=== PATIENT | male | born 1990 | race Caucasian/White ===

== ENCOUNTER 2017-12-01 10:08 | Observation (INO) | payer OTHER ==
[2017-12-01] MEDS ORDERED: CEFAZOLIN/Water 2 GM/20 ML SYRINGE ONE (10:52)
[2017-12-01] MEDS ORDERED: Fentanyl 100 MCG/2 ML VIAL ONE ×3 (10:59→14:23)
[2017-12-01] MEDS ORDERED: Midazolam HCl 2 mg/2 ml Vial ONE (10:59)
[2017-12-01] MEDS ORDERED: Bupivacaine HCl 0.5%/Epinephrine 1:200,000/PF 30 ml Vial ONE ×2 (12:10→13:39)
[2017-12-01] MEDS ORDERED: Gelfilm 1 EA Packet ONE (12:10)
[2017-12-01] MEDS ORDERED: Bupivacaine HCl 0.25%/Epi 0.0005/PF 10 ML VIAL FS ONE (12:10)
[2017-12-01] MEDS ORDERED: Methocarbamol 500 MG TAB PO PRN (12:24)
[2017-12-01] MEDS ORDERED: Morphine 4 MG/ML Carpuject SLOW IVP PRN (12:24)
[2017-12-01] MEDS ORDERED: Milk Of Magnesia 30 ML UDCUP PO PRN (12:24)
[2017-12-01] MEDS ORDERED: HYDROcodone/Acetaminophen 7.5/325 mg Tablet PO PRN (12:24)
[2017-12-01] MEDS ORDERED: diphenhydrAMINE 50 MG CAP PO PRN (12:24)
[2017-12-01] MEDS ORDERED: Bisacodyl 10 MG SUPP PR PRN (12:24)
[2017-12-01] MEDS ORDERED: traMADol HCl 50 MG TAB PO PRN (12:24)
[2017-12-01] MEDS ORDERED: Acetaminophen 500 MG TAB PO PRN (12:24)
[2017-12-01] MEDS ORDERED: Ondansetron HCl/PF 4 MG/2 ML Vial IVP PRN (12:24)
[2017-12-01] MEDS ORDERED: PROPOFOL 200 MG/20 ML VIAL ONE (15:07)
[2017-12-01] MEDS ORDERED: Ondansetron HCl/PF 4 MG/2 ML Vial ONE (15:07)
[2017-12-01] MEDS ORDERED: Lidocaine 1% PF 5 ML VIAL ONE (15:07)
[2017-12-01] MEDS ORDERED: Ketorolac Tromethamine 30 MG/ML VIAL ONE (15:07)
[2017-12-01 16:24] VITALS: BMI 32.8
[2017-12-01] MEDS: HYDROcodone/Acetaminophen 7.5/325 mg Tablet PO PRN (16:50)
[2017-12-01] MEDS: Ketorolac Tromethamine 30 MG/ML VIAL IVP SCH (17:49)
[2017-12-01] MEDS: Dextrose 5 %-0.45 % NaCl 1,000 ML IV SCH ×2 (18:42→22:32)
[2017-12-01] MEDS: Famotidine 20 MG TAB PO SCH (21:41)
[2017-12-01] MEDS: CEFAZOLIN/Water 2 GM/20 ML SYRINGE SLOW IVP SCH (21:41)
[2017-12-02] MEDS: HYDROcodone/Acetaminophen 7.5/325 mg Tablet PO PRN (00:43)
[2017-12-02] MEDS: Ketorolac Tromethamine 30 MG/ML VIAL IVP SCH ×2 (00:44→05:21)
[2017-12-02] MEDS: CEFAZOLIN/Water 2 GM/20 ML SYRINGE SLOW IVP SCH (05:21)
--- NOTE | 2017-12-02 07:27 | OP ---
DATE OF PROCEDURE: 12/01/2017 PREOPERATIVE DIAGNOSES: Left knee anterior cruciate ligament tear and lateral meniscal tear. POSTOPERATIVE DIAGNOSES: Left knee anterior cruciate ligament tear and lateral meniscal tear. PROCEDURE PERFORMED: 1. Left knee exam under anesthesia. 2. Left knee arthroscopy with arthroscopically assisted ACL reconstruction using autologous patellar tendon graft. 3. Partial lateral meniscectomy. SURGEON: Jeet Vila M.D. FILES SUPERVISOR: Jagdeep Merrill PA-C. BLOOD LOSS: Minimal. COMPLICATIONS: None. He did go to the recovery room in stable condition. ANESTHESIA: He did have a general anesthetic. He also had a preoperative block. IMPLANTS: Our implants to the left knee and the femur, we used a 7 x 25 metal interference screw, on the tibia, we used a bicortical screw with a smooth washer as a post. Both of these were [employer] de vices. INDICATIONS: Rahat is an active 27-year-old male who injured his left knee and at this time is prepa red for ACL reconstruction. DESCRIPTION OF PROCEDURE: After all appropriate consent forms were explained and signed, he was take n to the operating room and at this time was given general anesthetic. Once anesthesia was appropria te, exam under anesthesia was performed of the left lower extremity, confirming a positive Daniel an d positive pivot shift. The patient was found to be stable to varus and valgus stress and a negative posterior drawer. Tourniquet was applied to the left thigh and leg was placed in an arthroscopic le g padilla. The limb was then prepped and draped in standard surgical fashion. Limb was exsanguinated , tourniquet was taken up to 300 mmHg. Knife blade was used to make an incision down through skin anteriorly and the Bovie was then used to coagulate any brisk venous bleeding. New blade was used to take the paratenon off the underlying pat ellar tendon. At this time a central third patellar tendon graft was harvested in standard fashion u sing a double 10 blade, saw and osteotome. This was taken to the back table and made through the gra ft was size 10 on either side. We then loosely closed our graft site with multiple interrupted Vicry l sutures. Inferolateral portal was then established and the scope was placed into the knee joint. A needle localization technique was then used to make a medial working portal. Diagnostic arthroscop y commenced in the notch. ACL was basically not there at this time, there was a small remnant onto t he femoral insertion, but otherwise most of the ACL itself had a basically disintegrated at this time . PCL was intact. We turned our attention to the medial compartment. Femur, tibia, and medial meni scus were all probed and found to be intact. The lateral compartment was evaluated. Femur and tibia were in good condition. There was a significant tear on the posterior horn of the lateral meniscus which basically was a radial tear going back starting from the white-white zone going back towards th e red-white zone and then horizontally intact so that this chunk of meniscus was only attached at its insertion onto the root and was flipped up 90 degrees and sitting behind the medial femoral condyle. This obviously was not repairable and this portion was taken down leaving any remaining meniscus al one. Again, this left, probably about 30-40% of the meniscus intact posteriorly from the root to the popliteal hiatus. From this area forward the meniscus was normal. The gutters were swept through, no loose bodies noted and the patellofemoral joint was also found to be in good condition. At this t robert, notchplasty was performed using the shaver and the bur in standard fashion. At this time, the k nee was flexed up and through the medial portal an [id number] guide was used to place a pin up and out the anterolateral thigh. A 10 mm acorn reamer was used to ream our tunnel to a depth of 30. At this time, all loose bony and cartilaginous debris was removed from the knee joint. We then placed o ur guide into our knee at 52-1/2 degrees and used this to place a pin up into the knee joint. Again, a 10 mm reamer was used to ream our tibial tunnel. Again, all loose bony and cartilaginous debris w as removed from the knee joint. A rasp and lawrence were then used to smooth off the edges of our tunnel and at this time we went dry. The knee was then flexed again and the pin was placed up and out the anterolateral thigh using this to pull our passing suture into the knee joint. The graft was pulled up into the knee joint. The femur was then fixated with a 7 x 25 metal interference screw. The tibi a we drilled bicortically, tapped and placed a bicortical screw with a smooth washer using this as a post to tie our sutures around with the knee in nearly full extension and a posterior drawer being ap plied. At this time, the graft was visualized and found to go through full range of motion without a ny impingement on the femur or the PCL. The knee was found to have approximately 3 degrees of hypere xtension at this time. At this time the camera was removed, knee was drained. We then bone grafted our defect sites using running Vicryl to close our paratenon, 2-0 Vicryl and surgical kaylen to clos e skin. Bulky sterile dressing was applied. Tourniquet was let down. At this time, the patient was awakened. He was taken to recovery in stable condition. All counts were correct at the end of the case and he did receive preoperative IV antibiotics.
[2017-12-02 07:39] VITALS: TEMP 97.9
[2017-12-02] MEDS: Dextrose 5 %-0.45 % NaCl 1,000 ML IV SCH (08:21)
[2017-12-02] MEDS: Famotidine 20 MG TAB PO SCH (09:03)
[2017-12-02 11:16] VITALS: BP 118/80
== END 2017-12-02 12:06 | disposition home or self-care (01) ==
LOC: SDC 10:08 → SURG B 15:31
PROVIDERS: ADMIT Orthopaedic Surgery; ATTEND Orthopaedic Surgery
PROC: 0MQP4ZZ Repair Left Knee Bursa and Ligament, Percutaneous Endoscopic Approach (ICD-10-PCS; principal; 2017-12-01)
PROC: 0SBD4ZZ Excision of Left Knee Joint, Percutaneous Endoscopic Approach (ICD-10-PCS; 2017-12-01)
DX: S83.512A Sprain of anterior cruciate ligament of left knee, initial encounter (principal); S83.282A Other tear of lateral meniscus, current injury, left knee, initial encounter
CPT/HCPCS: 96374; 96375; 96376; C1713; G0378; G8978-GP-CJ; G8979-GP-CI; J0670; J1885; J2001; J2250; J2405; J2704; J3010